=== PATIENT | male | born 1975 | race Caucasian/White ===

== ENCOUNTER 2019-09-18 11:34 | Emergency (ER) | payer BC, OTHER ==
[~2019-09-18] VITALS: Ht 177.8 cm; Wt 240.3 kg
--- NOTE | 2019-09-18 12:16 | NUR ---
SOB, COUGH FOR TWO DAYS AND DEVELOPED FEVER THIS MORNING.
[2019-09-18 12:50] LABS: BASOPHILS # (AUTO) 0.01 x10^3/uL (0-0.1); BASOPHILS % (AUTO) 0 % (0-1); EOSINOPHILS # (AUTO) 0.03 x10^3/uL (0-0.4); EOSINOPHILS % (AUTO) 1 % (1-7); LYMPHOCYTES # (AUTO) 0.38 x10^3/uL (1-3.4); LYMPHOCYTES % (AUTO) 9 % (22-44); MD NO; MEAN CORPUSCULAR HEMOGLOBIN 29.4 pg (27.5-34.5); MEAN CORPUSCULAR HGB CONC 32.8 g/dL (33.2-36.2); MEAN CORPUSCULAR VOLUME 89.4 fL (81-97); MEAN PLATELET VOLUME 7.8 fL (7.4-10.4); MONOCYTES # (AUTO) 0.45 x10^3/uL (0.2-0.8); MONOCYTES % (AUTO) 11 % (2-9); NEUTROPHILS # (AUTO) 3.37 x10^3/uL (1.8-6.8); NEUTROPHILS % (AUTO) 80 % (42-75); PLATELET COUNT 154 x10^3/uL (130-400); RED BLOOD COUNT 5.39 x10^6/uL (4.38-5.82); RED CELL DISTRIBUTION WIDTH 14.8 % (9.4-14.8)
[2019-09-18] MEDS ORDERED: ALBUTEROL/IPRATROPIUM 2.5MG/0.5MG, 3 ML NPPB ONE (13:00)
[2019-09-18 13:01] LABS: ALBUMIN 3.6 g/dL (3.4-5.0); ANION GAP 2 mmol/L (5-15); CALCIUM 8.4 mg/dL (8.5-10.1); CHLORIDE 107 mmol/L (98-107)
[2019-09-18 13:08] LABS: ALANINE AMINOTRANSFERASE 21 U/L (12-78); ALKALINE PHOSPHATASE 66 U/L (45-117); BILIRUBIN,TOTAL 0.7 mg/dL (0.2-1.0); CREATININE 1.05 mg/dL (0.7-1.3); TOTAL PROTEIN 7.4 g/dL (6.4-8.2)
[2019-09-18] MEDS ORDERED: ALBUTEROL/IPRATROPIUM 2.5MG/0.5MG, 3 ML ONE (13:31)
[2019-09-18 13:47] LABS: D-DIMER (DIC) 0.47 ug/mlFEU (0.00-0.52); PROTIME 10.5 Seconds (9.6-11.5)
--- NOTE | 2019-09-18 13:51 | NUR ---
medicated as noted on may with duneb tx given
[2019-09-18] MEDS ORDERED: AZITHROMYCIN 500 MG TABLET PO ONE (14:30)
[2019-09-18] MEDS ORDERED: CEFDINIR 300 MG CAPSULE PO ONE (14:30)
[2019-09-18] MEDS ORDERED: CEFDINIR 300 MG CAPSULE ONE (14:33)
[2019-09-18] MEDS ORDERED: AZITHROMYCIN 250 MG TABLET ONE (14:33)
[2019-09-18 14:45] VITALS: BP 121/70
--- NOTE | 2019-09-18 14:52 | NUR ---
BREAK RN NOTE, REPORT RECEIVED FROM LUIS A ROLDAN: PT MEDICATED PER EMAR, TOLERATED WELL. PT'S SPO2 88-91% ON ROOM AIR, EVEN AND UNLABORED. DANIEL KC AWARE OF PT'S SPO2, MD RECOMMENDED ADMIT, PT REFUSED DESPITE MD RECC. PT GIVEN DC INSTRUCTIONS AND SCRIPT. PT AMBULATORY TO DC WITH STEADY GAIT, ALL QUESTIONS ANSWERED.
== END 2019-09-18 14:51 | disposition home or self-care (01) ==
LOC: ED 13:06
DX: J18.9 Pneumonia, unspecified organism (principal); R06.00 Dyspnea, unspecified; I21.9 Acute myocardial infarction, unspecified
CPT/HCPCS: 36415; 71045; 80053; 82728; 83605; 83615; 83880; 84145; 85025; 85049; 85379; 85384; 85610; 85730; 86140; 87040; 93005; 94640; 99285; J7512

== ENCOUNTER 2019-09-23 15:11 | Inpatient (IN) | payer BC ==
[~2019-09-23] VITALS: Ht 177.8 cm; Wt 228.4 kg
--- NOTE | 2019-09-23 15:19 | NUR ---
BIB [facility] FOR SOB. PT SEEN IN ED LAST MONDAY, DX WITH PNEUMONIA AND SENT HOME WITH ABX. PT ALSO SWABBED FOR COVID AT THAT TIME. PT DENIES RELIEF WITH ABX. FOUND AT 70% WHILE WALKING ON RA, 77% ON RA WHILE AT REST AND INTO THE 90S AFTER BREATHING TX. PT SITTING UP IN BED, NC IN PLACE. NO WOB NOTED AT THIS TIME. ERPA AT BEDSIDE FOR ASSESSMENT.
[2019-09-23] MEDS ORDERED: ALBUTEROL/IPRATROPIUM 2.5MG/0.5MG, 3 ML NPPB ONE (15:30)
--- NOTE | 2019-09-23 15:30 | NUR ---
REPORT TO LUIS A ROLDAN.
--- NOTE | 2019-09-23 15:38 | NUR ---
IV STARTED, LABS AND BLOOD CULTURES DRAWN. PT TOLERATED WELL. DENIES ANY NEEDS OR CONCERNS, CALL LIGHT IN REACH.
[2019-09-23] MEDS ORDERED: ACETAMINOPHEN 500 MG TABLET ONE (15:53)
[2019-09-23] MEDS ORDERED: ACETAMINOPHEN 500 MG TABLET PO ONE ×2 (16:00→18:00)
[2019-09-23] MEDS ORDERED: ALBUTEROL HFA 90 MCG/SPRAY INH PRN ×2 (16:00→21:30)
[2019-09-23 16:08] LABS: MEAN CORPUSCULAR HEMOGLOBIN 28.9 pg (27.5-34.5); MEAN CORPUSCULAR HGB CONC 32.3 g/dL (33.2-36.2); MEAN CORPUSCULAR VOLUME 89.4 fL (81-97); MEAN PLATELET VOLUME 8.3 fL (7.4-10.4); PLATELET COUNT 148 x10^3/uL (130-400); RED BLOOD COUNT 5.34 x10^6/uL (4.38-5.82); RED CELL DISTRIBUTION WIDTH 14.9 % (9.4-14.8)
[2019-09-23 16:10] LABS: ALBUMIN 3.1 g/dL (3.4-5.0); ANION GAP 6 mmol/L (5-15); CALCIUM 8.4 mg/dL (8.5-10.1); CHLORIDE 102 mmol/L (98-107)
[2019-09-23 16:11] LABS: CREATININE 1.18 mg/dL (0.7-1.3)
[2019-09-23 16:54] LABS: BASOPHILS % (AUTO) 0 % (0-1); EOSINOPHILS % (AUTO) 0 % (1-7); LYMPHOCYTES # (AUTO) 0.34 x10^3/uL (1-3.4); LYMPHOCYTES % (AUTO) 6 % (22-44); MD SCAN; MONOCYTES # (AUTO) 0.41 x10^3/uL (0.2-0.8); MONOCYTES % (AUTO) 8 % (2-9); NEUTROPHILS # (AUTO) 4.53 x10^3/uL (1.8-6.8); NEUTROPHILS % (AUTO) 86 % (42-75)
--- NOTE | 2019-09-23 16:59 | NUR ---
PT 80 PERCENT ON RA. PLACED BACK ON 6L NC
--- NOTE | 2019-09-23 17:34 | NUR ---
PT AWARE OF INTENTION TO ADMIT. SITTING ON EDGE OF BED IN POSITION OF COMFORT. FACIAL DIAPHORESIS NOTED. PT SPEAKING IN FULL SENTENCES AND BREATHING NOT LABORED WHILE SITTING QUIETLY.
[2019-09-23] MEDS ORDERED: PIPERACILLIN/TAZO/PMX 3.375GM 50 ML ONE (17:42)
[2019-09-23] MEDS ORDERED: VANCOMYCIN PER PHARMACY MC ONE (18:00)
[2019-09-23] MEDS ORDERED: ACETAMINOPHEN 325 MG TABLET PO PRN (18:00)
[2019-09-23] MEDS ORDERED: hydrALAzine 20 MG/ML, 1ML IVPush PRN (18:00)
[2019-09-23] MEDS ORDERED: KETOROLAC 30 MG/1 ML IV PRN (18:00)
[2019-09-23] MEDS ORDERED: AZITHROMYCIN 500 MG in SODIUM CHLORIDE 0.9% 250 ML IV SCH (18:00)
[2019-09-23] MEDS ORDERED: morphine SULFATE 10 MG/ML, 1ML IVPush PRN (18:00)
[2019-09-23] MEDS ORDERED: CEFTRIAXONE PMX 1GM/50ML 50 ML IV SCH (18:00)
[2019-09-23] MEDS ORDERED: GUAIFENESIN/DM 200-20MG, 10ML UDC PO PRN (18:00)
[2019-09-23] MEDS ORDERED: BISACODYL 10 MG SUPP PR PRN (18:00)
[2019-09-23] MEDS ORDERED: HYDROcodone/APAP 5/325 TABLET PO PRN (18:00)
[2019-09-23] MEDS ORDERED: POLYETHYLENE GLYCOL 17 GM PACKET PO PRN (18:00)
[2019-09-23] MEDS ORDERED: ENOXAPARIN 40 MG/0.4 ML SQ SCH (18:00)
[2019-09-23] MEDS: PIPERACILLIN/TAZO/PMX 3.375GM 50 ML IV SCH (18:16)
--- NOTE | 2019-09-23 18:23 | NUR ---
REPORT TO RAYMON GUNN. AWARE OF NEED FOR BARIATRIC BED. AWAITING TO HEAR BACK FROM RAYMON FOR WHEN PT CAN GO UPSTAIRS.
[2019-09-23] MEDS ORDERED: VANCOMYCIN PER PHARMACY MC PRN (18:30)
[2019-09-23] MEDS ORDERED: AZITHROMYCIN 500 MG in SODIUM CHLORIDE 0.9% 250 ML IV ONE (18:30)
--- NOTE | 2019-09-23 18:52 | NUR ---
REPORT TO JESSICA GUNN
[2019-09-23] MEDS ORDERED: PIPERACILLIN/TAZO/PMX 3.375GM 50 ML IVPB ONE (19:30)
[2019-09-23] MEDS ORDERED: VANCOMYCIN 3,000 MG in SODIUM CHLORIDE 0.9% 500 ML IV ONE (20:00)
[2019-09-23 21:59] VITALS: BP 146/96
[2019-09-24 03:18] VITALS: BP 139/82
[2019-09-24] MEDS: PIPERACILLIN/TAZO/PMX 3.375GM 50 ML IV SCH ×3 (03:29→21:47)
[2019-09-24 06:28] LABS: ANION GAP 5 mmol/L (5-15); CALCIUM 8.4 mg/dL (8.5-10.1); CHLORIDE 105 mmol/L (98-107)
[2019-09-24 06:38] LABS: BASOPHILS # (AUTO) 0.01 x10^3/uL (0-0.1); BASOPHILS % (AUTO) 0 % (0-1); EOSINOPHILS # (AUTO) 0.02 x10^3/uL (0-0.4); EOSINOPHILS % (AUTO) 0 % (1-7); LYMPHOCYTES # (AUTO) 0.47 x10^3/uL (1-3.4); LYMPHOCYTES % (AUTO) 10 % (22-44); MD SCAN; MEAN CORPUSCULAR HEMOGLOBIN 28.6 pg (27.5-34.5); MEAN CORPUSCULAR VOLUME 89.4 fL (81-97); MEAN PLATELET VOLUME 8.8 fL (7.4-10.4); MONOCYTES # (AUTO) 0.46 x10^3/uL (0.2-0.8); MONOCYTES % (AUTO) 10 % (2-9); NEUTROPHILS # (AUTO) 3.85 x10^3/uL (1.8-6.8); NEUTROPHILS % (AUTO) 80 % (42-75); PLATELET COUNT 155 x10^3/uL (130-400); RED BLOOD COUNT 5.44 x10^6/uL (4.38-5.82); RED CELL DISTRIBUTION WIDTH 14.9 % (9.4-14.8)
[2019-09-24 06:39] LABS: CREATININE 1.07 mg/dL (0.7-1.3)
[2019-09-24 07:51] VITALS: BP 108/77
[2019-09-24] MEDS: SENNA/DOCUSATE TABLET PO SCH (09:00)
[2019-09-24] MEDS ORDERED: ENOXAPARIN 30 MG/0.3 ML SQ SCH (09:00)
[2019-09-24] MEDS: CHOLECALCIFEROL 5,000u TAB PO SCH (09:38)
[2019-09-24] MEDS: methylPREDNISolone SOD SUCC 125 MG/2 ML IVPush SCH ×3 (09:38→21:49)
[2019-09-24] MEDS: VANCOMYCIN 2,500 MG in SODIUM CHLORIDE 0.9% 500 ML IV SCH ×2 (09:38→22:31)
[2019-09-24] MEDS: PAROXETINE 20 MG TABLET PO SCH (09:38)
[2019-09-24] MEDS: ASCORBIC ACID 500 MG TABLET PO SCH ×3 (09:39→21:51)
[2019-09-24] MEDS: ZINC SULFATE 220 MG CAPSULE PO SCH (09:39)
[2019-09-24] MEDS ORDERED: ENOXAPARIN 100 MG/ML SQ ONE (13:00)
[2019-09-24] MEDS: Enoxaparin 1 mg/kg protocol SQ SCH (13:00)
[2019-09-24 13:52] VITALS: BP 135/82
[2019-09-24 19:12] VITALS: BP 142/77
[2019-09-24] MEDS: MELATONIN 5 MG TABLET PO SCH (21:00)
[2019-09-25 01:16] VITALS: BP 139/69
[2019-09-25] MEDS: Enoxaparin 1 mg/kg protocol SQ SCH ×2 (05:00→17:00)
[2019-09-25] MEDS: ENOXAPARIN 120MG/0.8ML SQ SCH ×2 (05:14→16:33)
[2019-09-25] MEDS: PIPERACILLIN/TAZO/PMX 3.375GM 50 ML IV SCH ×3 (05:14→21:04)
[2019-09-25] MEDS: methylPREDNISolone SOD SUCC 125 MG/2 ML IVPush SCH ×4 (05:14→23:02)
[2019-09-25 08:00] VITALS: BP 125/67
[2019-09-25] MEDS: VANCOMYCIN 2,500 MG in SODIUM CHLORIDE 0.9% 500 ML IV SCH (08:16)
[2019-09-25] MEDS: ASCORBIC ACID 500 MG TABLET PO SCH ×3 (08:17→23:02)
[2019-09-25] MEDS: CHOLECALCIFEROL 5,000u TAB PO SCH (08:18)
[2019-09-25] MEDS: ZINC SULFATE 220 MG CAPSULE PO SCH (08:18)
[2019-09-25] MEDS: PAROXETINE 20 MG TABLET PO SCH (08:18)
[2019-09-25] MEDS: SENNA/DOCUSATE TABLET PO SCH (08:19)
[2019-09-25 15:02] VITALS: BP 148/83
[2019-09-25] MEDS: MELATONIN 5 MG TABLET PO SCH (21:00)
[2019-09-25 21:10] VITALS: BP 132/74
[2019-09-25] MEDS ORDERED: PHARMACOKINETIC CONSULTATION MC ONE (23:30)
[2019-09-25] MEDS ORDERED: PHARMACOKINETIC MONITORING MC PRN (23:30)
[2019-09-26] MEDS: VANCOMYCIN 2,500 MG in SODIUM CHLORIDE 0.9% 500 ML IV SCH ×2 (02:11→19:54)
[2019-09-26 02:13] VITALS: BP 114/57
[2019-09-26] MEDS: ENOXAPARIN 120MG/0.8ML SQ SCH ×2 (05:29→17:03)
[2019-09-26] MEDS: methylPREDNISolone SOD SUCC 125 MG/2 ML IVPush SCH ×3 (05:29→16:57)
[2019-09-26] MEDS: PIPERACILLIN/TAZO/PMX 3.375GM 50 ML IV SCH ×3 (05:29→22:23)
[2019-09-26] MEDS: SENNA/DOCUSATE TABLET PO SCH (09:00)
[2019-09-26] MEDS: CHOLECALCIFEROL 5,000u TAB PO SCH (09:04)
[2019-09-26] MEDS: ZINC SULFATE 220 MG CAPSULE PO SCH (09:04)
[2019-09-26] MEDS: PAROXETINE 20 MG TABLET PO SCH (09:04)
[2019-09-26] MEDS: ASCORBIC ACID 500 MG TABLET PO SCH ×3 (09:05→22:23)
[2019-09-26 09:06] VITALS: BP 115/60
[2019-09-26 14:18] VITALS: BP 113/60
[2019-09-26] MEDS: DEXAMETHASONE 4 MG/ML, 1ML IVPush SCH ×2 (17:30→22:23)
[2019-09-26 18:52] VITALS: BP 127/62
[2019-09-26] MEDS: MELATONIN 5 MG TABLET PO SCH (21:00)
[2019-09-27 00:57] VITALS: BP 115/66
[2019-09-27] MEDS: PIPERACILLIN/TAZO/PMX 3.375GM 50 ML IV SCH ×3 (06:18→22:32)
[2019-09-27] MEDS: DEXAMETHASONE 4 MG/ML, 1ML IVPush SCH ×4 (06:18→22:32)
[2019-09-27] MEDS: ENOXAPARIN 100 MG/ML SQ SCH ×2 (06:18→16:39)
[2019-09-27 06:21] LABS: CREATININE 1.06 mg/dL (0.7-1.3)
[2019-09-27 07:20] VITALS: BP 136/75
[2019-09-27] MEDS: PAROXETINE 20 MG TABLET PO SCH (07:58)
[2019-09-27] MEDS: ZINC SULFATE 220 MG CAPSULE PO SCH (07:59)
[2019-09-27] MEDS: SENNA/DOCUSATE TABLET PO SCH (07:59)
[2019-09-27] MEDS: CHOLECALCIFEROL 5,000u TAB PO SCH (07:59)
[2019-09-27] MEDS: ASCORBIC ACID 500 MG TABLET PO SCH ×3 (07:59→21:00)
[2019-09-27 12:16] VITALS: BP 120/62
[2019-09-27 13:31] LABS: MEAN CORPUSCULAR HEMOGLOBIN 28.5 pg (27.5-34.5); MEAN CORPUSCULAR HGB CONC 31.7 g/dL (33.2-36.2); MEAN CORPUSCULAR VOLUME 89.8 fL (81-97); MEAN PLATELET VOLUME 9.4 fL (7.4-10.4); PLATELET COUNT 176 x10^3/uL (130-400); RED BLOOD COUNT 5.05 x10^6/uL (4.38-5.82); RED CELL DISTRIBUTION WIDTH 14.9 % (9.4-14.8)
[2019-09-27 13:38] LABS: ALANINE AMINOTRANSFERASE 23 U/L (12-78); ALBUMIN 2.7 g/dL (3.4-5.0); ANION GAP 6 mmol/L (5-15); CALCIUM 8.9 mg/dL (8.5-10.1); CHLORIDE 106 mmol/L (98-107); CREATININE 1.12 mg/dL (0.7-1.3)
[2019-09-27 13:44] LABS: ALKALINE PHOSPHATASE 34 U/L (45-117); BILIRUBIN,TOTAL 0.5 mg/dL (0.2-1.0); TOTAL PROTEIN 6.7 g/dL (6.4-8.2)
[2019-09-27 13:51] LABS: BASOPHILS % (AUTO) 0 % (0-1); EOSINOPHILS % (AUTO) 0 % (1-7); LYMPHOCYTES # (AUTO) 0.25 x10^3/uL (1-3.4); LYMPHOCYTES % (AUTO) 3 % (22-44); MD SCAN; MONOCYTES # (AUTO) 0.55 x10^3/uL (0.2-0.8); MONOCYTES % (AUTO) 7 % (2-9); NEUTROPHILS # (AUTO) 7.02 x10^3/uL (1.8-6.8); NEUTROPHILS % (AUTO) 90 % (42-75)
[2019-09-27 20:31] VITALS: BP 116/56
[2019-09-27] MEDS: MELATONIN 5 MG TABLET PO SCH (21:00)
[2019-09-27] MEDS: SIMETHICONE 80 MG CHEW TAB PO PRN (23:08)
[2019-09-28 01:46] VITALS: BP 123/75
[2019-09-28] MEDS: DEXAMETHASONE 4 MG/ML, 1ML IVPush SCH ×4 (05:15→22:44)
[2019-09-28] MEDS: ENOXAPARIN 100 MG/ML SQ SCH (05:15)
[2019-09-28 05:33] LABS: BASOPHILS % (AUTO) 0 % (0-1); EOSINOPHILS % (AUTO) 0 % (1-7); LYMPHOCYTES # (AUTO) 0.19 x10^3/uL (1-3.4); LYMPHOCYTES % (AUTO) 2 % (22-44); MD NO; MEAN CORPUSCULAR HEMOGLOBIN 28.6 pg (27.5-34.5); MEAN CORPUSCULAR HGB CONC 32.3 g/dL (33.2-36.2); MEAN CORPUSCULAR VOLUME 88.6 fL (81-97); MEAN PLATELET VOLUME 8.5 fL (7.4-10.4); MONOCYTES % (AUTO) 5 % (2-9); NEUTROPHILS # (AUTO) 7.38 x10^3/uL (1.8-6.8); NEUTROPHILS % (AUTO) 93 % (42-75); PLATELET COUNT 174 x10^3/uL (130-400); RED BLOOD COUNT 4.97 x10^6/uL (4.38-5.82)
[2019-09-28 05:52] LABS: CREATININE 0.92 mg/dL (0.7-1.3)
[2019-09-28] MEDS: PIPERACILLIN/TAZO/PMX 3.375GM 50 ML IV SCH ×3 (06:37→22:43)
[2019-09-28 08:53] VITALS: BP 126/60
[2019-09-28] MEDS: ZINC SULFATE 220 MG CAPSULE PO SCH (09:21)
[2019-09-28] MEDS: SENNA/DOCUSATE TABLET PO SCH ×2 (09:21→09:24)
[2019-09-28] MEDS: ASCORBIC ACID 500 MG TABLET PO SCH ×3 (09:21→20:39)
[2019-09-28] MEDS: CHOLECALCIFEROL 5,000u TAB PO SCH (09:21)
[2019-09-28] MEDS: PAROXETINE 20 MG TABLET PO SCH (09:21)
[2019-09-28 12:48] VITALS: BP 149/75
[2019-09-28] MEDS: ONDANSETRON 2MG/ML, 2ML IVPush PRN ×2 (13:43→22:44)
[2019-09-28] MEDS: MELATONIN 5 MG TABLET PO SCH (20:39)
[2019-09-28] MEDS: ENOXAPARIN 150 MG/ML SQ SCH (20:39)
[2019-09-28 20:42] VITALS: BP 136/65
[2019-09-29 01:13] VITALS: BP 120/61
[2019-09-29] MEDS: DEXAMETHASONE 4 MG/ML, 1ML IVPush SCH ×2 (05:37→10:57)
[2019-09-29] MEDS: PIPERACILLIN/TAZO/PMX 3.375GM 50 ML IV SCH ×3 (06:29→18:49)
[2019-09-29] MEDS: ZINC SULFATE 220 MG CAPSULE PO SCH (08:51)
[2019-09-29] MEDS: CHOLECALCIFEROL 5,000u TAB PO SCH (08:51)
[2019-09-29] MEDS: ASCORBIC ACID 500 MG TABLET PO SCH ×3 (08:51→19:51)
[2019-09-29] MEDS: PAROXETINE 20 MG TABLET PO SCH (08:51)
[2019-09-29] MEDS: ENOXAPARIN 150 MG/ML SQ SCH ×2 (08:53→19:51)
[2019-09-29 09:18] VITALS: BP 120/63
[2019-09-29 12:02] VITALS: BP 116/56
[2019-09-29 13:14] VITALS: BP 135/74
[2019-09-29] MEDS: methylPREDNISolone SOD SUCC 40 MG/ML IV SCH ×2 (16:54→22:24)
[2019-09-29] MEDS: AZITHROMYCIN 500 MG in SODIUM CHLORIDE 0.9% 250 ML IV SCH (17:08)
[2019-09-29] MEDS: ONDANSETRON 2MG/ML, 2ML IVPush PRN (17:30)
[2019-09-29 19:48] VITALS: BP 133/70
[2019-09-29] MEDS: MELATONIN 5 MG TABLET PO SCH (22:24)
[2019-09-30] MEDS: PIPERACILLIN/TAZO/PMX 3.375GM 50 ML IV SCH ×4 (00:33→19:32)
[2019-09-30 00:34] VITALS: BP 129/63
[2019-09-30 06:18] VITALS: BP 139/73
[2019-09-30] MEDS: ZINC SULFATE 220 MG CAPSULE PO SCH (10:06)
[2019-09-30] MEDS: methylPREDNISolone SOD SUCC 40 MG/ML IV SCH ×3 (10:06→20:57)
[2019-09-30] MEDS: ASCORBIC ACID 500 MG TABLET PO SCH ×3 (10:06→20:58)
[2019-09-30] MEDS: CHOLECALCIFEROL 5,000u TAB PO SCH (10:06)
[2019-09-30] MEDS: PAROXETINE 20 MG TABLET PO SCH (10:06)
[2019-09-30] MEDS: ENOXAPARIN 150 MG/ML SQ SCH ×2 (10:07→20:58)
[2019-09-30 12:44] VITALS: BP 138/76
[2019-09-30] MEDS: AZITHROMYCIN 500 MG in SODIUM CHLORIDE 0.9% 250 ML IV SCH (17:16)
[2019-09-30 19:35] VITALS: BP 140/79
[2019-09-30] MEDS: MELATONIN 5 MG TABLET PO SCH (20:57)
[2019-10-01] MEDS: SIMETHICONE 80 MG CHEW TAB PO PRN ×2 (00:25→05:38)
[2019-10-01 01:35] VITALS: BP 135/63
[2019-10-01] MEDS: PIPERACILLIN/TAZO/PMX 3.375GM 50 ML IV SCH ×4 (01:38→21:56)
[2019-10-01 06:49] VITALS: BP 130/66
[2019-10-01] MEDS: ENOXAPARIN 150 MG/ML SQ SCH ×2 (09:23→20:07)
[2019-10-01] MEDS: ZINC SULFATE 220 MG CAPSULE PO SCH (09:24)
[2019-10-01] MEDS: PAROXETINE 20 MG TABLET PO SCH (09:24)
[2019-10-01] MEDS: methylPREDNISolone SOD SUCC 40 MG/ML IV SCH ×3 (09:24→20:06)
[2019-10-01] MEDS: ASCORBIC ACID 500 MG TABLET PO SCH ×3 (09:24→21:00)
[2019-10-01] MEDS: CHOLECALCIFEROL 5,000u TAB PO SCH (09:24)
[2019-10-01 12:41] VITALS: BP 125/63
[2019-10-01] MEDS: PANTOPRAZOLE 40 MG IV IVPush SCH (15:33)
[2019-10-01] MEDS: SUCRALFATE 1 GM/10 ML UDC PO SCH ×2 (15:34→20:06)
[2019-10-01] MEDS: AZITHROMYCIN 500 MG in SODIUM CHLORIDE 0.9% 250 ML IV SCH (17:09)
[2019-10-01 20:03] VITALS: BP 128/62
[2019-10-01] MEDS: MELATONIN 5 MG TABLET PO SCH (21:00)
[2019-10-02 02:03] VITALS: BP 119/61
[2019-10-02] MEDS: PIPERACILLIN/TAZO/PMX 3.375GM 50 ML IV SCH ×4 (03:50→21:27)
[2019-10-02 07:07] VITALS: BP 125/62
[2019-10-02] MEDS: PAROXETINE 20 MG TABLET PO SCH (09:04)
[2019-10-02] MEDS: CHOLECALCIFEROL 5,000u TAB PO SCH (09:04)
[2019-10-02] MEDS: PANTOPRAZOLE 40 MG IV IVPush SCH (09:05)
[2019-10-02] MEDS: SUCRALFATE 1 GM/10 ML UDC PO SCH ×4 (09:05→21:27)
[2019-10-02] MEDS: ASCORBIC ACID 500 MG TABLET PO SCH ×3 (09:05→21:00)
[2019-10-02] MEDS: ZINC SULFATE 220 MG CAPSULE PO SCH (09:05)
[2019-10-02] MEDS: ENOXAPARIN 150 MG/ML SQ SCH ×2 (09:06→21:26)
[2019-10-02] MEDS: ONDANSETRON 2MG/ML, 2ML IVPush PRN (09:51)
[2019-10-02] MEDS: methylPREDNISolone SOD SUCC 40 MG/ML IV SCH ×3 (09:52→21:26)
[2019-10-02 14:38] VITALS: BP 137/60
[2019-10-02] MEDS: FUROSEMIDE 40 MG/4 ML IV SCH (16:48)
[2019-10-02] MEDS: AZITHROMYCIN 500 MG in SODIUM CHLORIDE 0.9% 250 ML IV SCH (17:38)
[2019-10-02 19:06] VITALS: BP 115/61
[2019-10-02] MEDS: MELATONIN 5 MG TABLET PO SCH (21:00)
[2019-10-03 00:53] VITALS: BP 124/60
[2019-10-03] MEDS: PIPERACILLIN/TAZO/PMX 3.375GM 50 ML IV SCH ×4 (03:14→21:28)
[2019-10-03 07:24] LABS: ANION GAP 4 mmol/L (5-15); CALCIUM 8.1 mg/dL (8.5-10.1); CHLORIDE 102 mmol/L (98-107)
[2019-10-03 07:27] LABS: CREATININE 0.88 mg/dL (0.7-1.3)
[2019-10-03] MEDS ORDERED: POTASSIUM CHLORIDE 20 MEQ TAB.ER.PRT PO ONE (08:00)
[2019-10-03 08:14] VITALS: BP 115/57
[2019-10-03] MEDS: SUCRALFATE 1 GM/10 ML UDC PO SCH ×4 (08:39→19:56)
[2019-10-03] MEDS: ZINC SULFATE 220 MG CAPSULE PO SCH (09:00)
[2019-10-03] MEDS: ASCORBIC ACID 500 MG TABLET PO SCH ×3 (09:00→19:48)
[2019-10-03] MEDS: CHOLECALCIFEROL 5,000u TAB PO SCH (09:00)
[2019-10-03] MEDS: ENOXAPARIN 150 MG/ML SQ SCH ×2 (10:22→21:28)
[2019-10-03] MEDS: PANTOPRAZOLE 40 MG IV IVPush SCH (10:22)
[2019-10-03] MEDS: FUROSEMIDE 40 MG/4 ML IV SCH ×2 (10:22→16:52)
[2019-10-03] MEDS: PAROXETINE 20 MG TABLET PO SCH (10:24)
[2019-10-03 14:22] VITALS: BP 125/68
[2019-10-03] MEDS: LOPERAMIDE 2 MG CAPSULE PO SCH ×3 (15:24→21:28)
[2019-10-03] MEDS: AZITHROMYCIN 500 MG in SODIUM CHLORIDE 0.9% 250 ML IV SCH (17:42)
[2019-10-03 19:35] VITALS: BP 103/63
[2019-10-03] MEDS: MELATONIN 5 MG TABLET PO SCH (19:48)
[2019-10-03] MEDS: methylPREDNISolone SOD SUCC 40 MG/ML IV SCH (19:56)
[2019-10-04 00:41] VITALS: BP 116/73
[2019-10-04] MEDS: LOPERAMIDE 2 MG CAPSULE PO SCH ×3 (01:43→09:56)
[2019-10-04] MEDS: PIPERACILLIN/TAZO/PMX 3.375GM 50 ML IV SCH ×2 (03:09→09:30)
[2019-10-04] MEDS: SUCRALFATE 1 GM/10 ML UDC PO SCH ×2 (05:39→11:00)
[2019-10-04] MEDS: FUROSEMIDE 40 MG/4 ML IV SCH (07:30)
[2019-10-04 08:47] VITALS: BP 139/62
[2019-10-04] MEDS: ASCORBIC ACID 500 MG TABLET PO SCH (09:00)
[2019-10-04] MEDS: ZINC SULFATE 220 MG CAPSULE PO SCH (09:00)
[2019-10-04] MEDS: ENOXAPARIN 150 MG/ML SQ SCH (09:30)
[2019-10-04] MEDS: PANTOPRAZOLE 40 MG IV IVPush SCH (09:41)
[2019-10-04] MEDS: methylPREDNISolone SOD SUCC 40 MG/ML IV SCH (09:41)
[2019-10-04] MEDS: CHOLECALCIFEROL 5,000u TAB PO SCH (09:42)
[2019-10-04] MEDS: PAROXETINE 20 MG TABLET PO SCH (09:42)
== END 2019-10-04 13:33 | disposition home or self-care (01) | DRG 871 ==
LOC: ED 17:40 → OBSVTOIN 17:47 → EDIP 17:47 → ED 17:55 → 4NW 19:05
PROVIDERS: ADMIT Internal Medicine; ATTEND Family Medicine
DX: A41.9 Sepsis, unspecified organism (principal); E43 Unspecified severe protein-calorie malnutrition; J12.89 Other viral pneumonia; J96.01 Acute respiratory failure with hypoxia; U07.1 COVID-19; Z68.45 Body mass index [BMI] 70 or greater, adult; E66.01 Morbid (severe) obesity due to excess calories; I10 Essential (primary) hypertension; Z88.8 Allergy status to other drugs, medicaments and biological substances
CPT/HCPCS: 36415; 71045; 80048; 80053; 80202; 82040; 82565; 83036; 83615; 84145; 84443; 85025; 85379; 85520; 86140; 87040; 87635; 93005; G0378; J0456; J1100; J1650; J1940; J2405; J2543; J3370; C9113; J2920; J2930; J7040; J7050; J7512

== ENCOUNTER 2019-10-14 09:49 | Emergency (ER) | payer BC ==
[~2019-10-14] VITALS: Ht 177.8 cm; Wt 244.0 kg
[2019-10-14 10:49] LABS: BASOPHILS # (AUTO) 0.03 x10^3/uL (0-0.1); BASOPHILS % (AUTO) 1 % (0-1); EOSINOPHILS # (AUTO) 0.09 x10^3/uL (0-0.4); EOSINOPHILS % (AUTO) 2 % (1-7); LYMPHOCYTES # (AUTO) 1.07 x10^3/uL (1-3.4); LYMPHOCYTES % (AUTO) 18 % (22-44); MD NO; MEAN CORPUSCULAR HEMOGLOBIN 28.3 pg (27.5-34.5); MEAN CORPUSCULAR HGB CONC 31.8 g/dL (33.2-36.2); MEAN PLATELET VOLUME 7.7 fL (7.4-10.4); MONOCYTES # (AUTO) 0.38 x10^3/uL (0.2-0.8); MONOCYTES % (AUTO) 6 % (2-9); NEUTROPHILS # (AUTO) 4.42 x10^3/uL (1.8-6.8); NEUTROPHILS % (AUTO) 74 % (42-75); PLATELET COUNT 168 x10^3/uL (130-400); RED CELL DISTRIBUTION WIDTH 15.6 % (9.4-14.8)
[2019-10-14 10:52] LABS: ALANINE AMINOTRANSFERASE 30 U/L (12-78); ALBUMIN 2.7 g/dL (3.4-5.0); ANION GAP 3 mmol/L (5-15); CALCIUM 8.9 mg/dL (8.5-10.1); CHLORIDE 109 mmol/L (98-107); CREATININE 1.09 mg/dL (0.7-1.3)
[2019-10-14 10:56] LABS: ALKALINE PHOSPHATASE 49 U/L (45-117); BILIRUBIN,TOTAL 0.6 mg/dL (0.2-1.0); TOTAL PROTEIN 6.2 g/dL (6.4-8.2)
--- NOTE | 2019-10-14 11:02 | NUR ---
PT UPRIGHT ON GURNEY AWAKE & COMFORTABLE, WATCHING TV, RESPONDS APPROP TO STAFF, COMFORT MEASURES PROVIDED, CALL LIGHT WITHIN REACH, US COMPLETED.
[2019-10-14 11:59] VITALS: BP 135/68
--- NOTE | 2019-10-14 12:02 | NUR ---
TASK RN: RE-EVALUATING PT
== END 2019-10-14 12:14 | disposition home or self-care (01) ==
LOC: ED 12:03
DX: R60.0 Localized edema (principal); E66.01 Morbid (severe) obesity due to excess calories; R07.9 Chest pain, unspecified; M79.604 Pain in right leg; M79.605 Pain in left leg; I10 Essential (primary) hypertension; Z68.41 Body mass index [BMI] 40.0-44.9, adult
CPT/HCPCS: 36415; 71045; 80053; 83880; 85025; 93005; 93970; 99285